=== PATIENT | male | born 1965 | race Caucasian/White ===

== ENCOUNTER 2018-07-23 18:52 | Emergency (ER) | payer MEDICARE ==
[2018-07-23 19:04] VITALS: RESP 16
[2018-07-23] MEDS ORDERED: PROPARACAINE 0.5% OPHTH DROPS 15 ML BTL RIGHT EYE STA (19:13)
[2018-07-23] MEDS ORDERED: HYDROcodone/APAP 7.5-325MG 1 EACH TAB PO ONE (19:56)
--- NOTE | 2018-07-23 20:08 | ED ---
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 Patient reports that a sharp stabbing pain in his left eye began approximately 1.5 hours prior to presentation to ED. 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 Patient reports that current plan with ophthalmology is for removal of his left eye and prosthesis placement. Admission follows up with Dr. Arnett at [facility]. Patient denies any other complaints at this time. The chest mentions with abdominal pain, nausea vomiting diarrhea. Systemic: Pt denies fatigue, fever/chills, rash. Pt denies weakness, night sweats, weight loss. Neuro: Pt denies headache, syncope or pre-syncope. HEENT: Pt denies otalgia, rhinorrhea, pharyngitis or notable lymphadenopathy. Cardiopulmonary: Pt denies chest pain, SOB, heart palpitations, dyspnea on exertion. Abdominal/GI: Pt denies abdominal pain, n/v/d. : Pt denies dysuria, burning w/ urination, frequency/urgency. Denies new onset urinary or bowel incontinence. MSK: Pt denies myalgia, loss of strength or function in extremities. Neuro: Pt denies new onset weakness, paresthesias. - Related Data Home Medications Medication Instructions Recorded Confirmed Acetaminophen [Tylenol 8 Hour] 650 mg PO Q4H PRN MDD 6 TAB/24 HOUR 07/23/18 07/23/18 Chlorpheniramine Maleate 4 mg PO Q4H PRN MDD 4 DOSES/24 07/23/18 07/23/18 [Chlor-Trimeton] HOURS Folic Acid 2 mg PO DAILY 07/23/18 07/23/18 Ibuprofen [Motrin] 600 mg PO Q6HR PRN 07/23/18 07/23/18 Mirtazapine [Remeron] 30 mg PO HS 07/23/18 07/23/18 QUEtiapine [SEROquel] 100 mg PO HS 07/23/18 07/23/18 Sertraline HCl [Zoloft] 25 mg PO DAILY 07/23/18 07/23/18 Sertraline HCl [Zoloft] 50 mg PO DAILY 07/23/18 07/23/18 busPIRone HCL 15 mg PO TID 07/23/18 07/23/18 chlorproMAZINE HCL [Thorazine] 200 mg PO HS 07/23/18 07/23/18 traZODone HCL 50 - 150 mg PO HS 07/23/18 07/23/18 Allergies Allergy/AdvReac Type Severity Reaction Status Date / Time No Known Allergies Allergy Verified 07/23/18 19:30 Review of Systems ROS Statement: Those systems with pertinent positive or pertinent negative responses have been documented in the HPI. ROS Other: All systems not noted in ROS Statement are negative. Past Medical History Past Medical History: COPD, Hyperlipidemia History of Any Multi-Drug Resistant Organisms: None Reported Past Surgical History: Pacemaker Additional Past Surgical History / Comment(s): cornea transplant Past Psychological History: Depression Smoking Status: Current every day smoker Past Alcohol Use History: None Reported Past Drug Use History: Cocaine General Exam - General Exam Comments Initial Comments: Constitutional: NAD, AOX3, Pt has pleasant affect. HEENT: NC/AT, trachea midline, neck supple, no lymphadenopathy. Posterior pharynx non erythematous, without exudates. External ears appear normal, without discharge. Mucous membranes moist. There is no scleral icterus. No pallor noted. Extraocular movements intact bilaterally. Right eye PERRLA, IOP avg 14, no injection. L eye injection to medial canthus, IOP average 19, pupil fixed and nonreactive, flourescence stain revealed mild amount of uptake at cornea. Cardiopulmonary: RRR, no murmurs, rubs or gallops, no JVD noted. Lungs CTAB in anterior and posterior hong. No peripheral edema. Abdominal exam: Abdomen soft and non-distended. Abdomen non-tender to palpation in all 4 quadrants. Bowel sounds active in LLQ. No hepatosplenomegaly. No ecchymosis Neuro: CN II-XII grossly intact. No nuchal rigidity. No raccon eyes, no payan s ign, no hemotympanum. No cervical spinal tenderness. MSK: No posterior calf tenderness bilaterally, homans sign negative bilaterally. Posterior tibialis and radial pulse +2 bilaterally. Sensation intact in upper and lower extremities. Full active ROM in upper and lower extremities, 5/5 stregnth. 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 Patient reports that a sharp stabbing pain in his left eye began approximately 1.5 hours prior to presentation to ED. 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 Patient reports that current plan with ophthalmology is for removal of his left eye and prosthesis placement. Admission follows up with Dr. Arnett at [facility]. Patient denies any other complaints at this time. The chest mentions with abdominal pain, nausea vomiting diarrhea. Pt VSS, afebrile. Physical exam displayed: Extraocular movements intact bilaterally. Right eye PERRLA, IOP avg 14, no injection. L eye injection to medial canthus, IOP average 19, pupil fixed and nonreactive, flourescence stain revealed mild amount of uptake at cornea. Patient will be transferred to [facility] for ophthalmology evaluation. Accepting physician Dr. Cat. Case discussed with Dr. Thayer. Disposition Clinical Impression: Ophthalmalgia Disposition: OTHER INSTITUTION NOT DEFINED Condition: Serious Instructions (If sedation given, give patient instructions): Eye Pain (ED) Is patient prescribed a controlled substance at d/c from ED?: No Referrals: None,Stated [Primary Care Provider] - 1-2 days - Out of Hospital Transfer - Req. Specs Out of Hospital Transfer - Requested Specifics: Other Emergency Center ([facility] ED)
--- NOTE | 2018-07-23 20:20 | ED ---
Medical Decision Making - Medical Decision Making Neuro: CN II-XII intact. No nuchal rigidity. No raccon eyes, no payan sign, no hemotympanum. No cervical spinal tenderness. NIH 0. Globe soft bilaterally. Disposition Clinical Impression: Ophthalmalgia Disposition: OTHER INSTITUTION NOT DEFINED Condition: Serious Instructions (If sedation given, give patient instructions): Eye Pain (ED) Is patient prescribed a controlled substance at d/c from ED?: No Referrals: None,Stated [Primary Care Provider] - 1-2 days - Out of Hospital Transfer - Req. Specs Out of Hospital Transfer - Requested Specifics: Other Emergency Center ([facility] ED)
[2018-07-23 21:03] VITALS: BP 144/72; PULSE 78; TEMP 98
== END 2018-07-23 21:03 | disposition other institution (70) ==
LOC: EC 18:52
DX: H57.12 Ocular pain, left eye (principal); Z94.7 Corneal transplant status; F32.9 Major depressive disorder, single episode, unspecified; F17.200 Nicotine dependence, unspecified, uncomplicated; Z79.899 Other long term (current) drug therapy; Z95.0 Presence of cardiac pacemaker
CPT/HCPCS: 99284